=== PATIENT | female | born 1985 | race American Indian/Alaskan Native ===

== ENCOUNTER 2019-02-05 16:14 | Emergency (ER) | payer BC ==
--- NOTE | 2019-02-05 16:21 | Emergency Department Report ---
Blank Doc - Documentation Documentation: This is a 33-year-old female that presents with acute on chronic intermittent headache. Stated has been having headaches for many years. Stated seen PCP last week. This initial assessment/diagnostic orders/clinical plan/treatment(s) is/are subject to change based on patient's health status, clinical progression and re- assessment by fellow clinical providers in the ED. Further treatment and workup at subsequent clinical providers discretion. Patient/guardians urged not to elope from the ED as their condition may be serious if not clinically assessed and managed. Initial orders include: 1- Patient sent to [facility] for further evaluation and treatment
[2019-02-05] MEDS ORDERED: REGLAN IV ONE (17:17)
[2019-02-05] MEDS ORDERED: BENADRYL IV ONE (17:17)
[2019-02-05] MEDS ORDERED: TORADOL IV ONE (17:17)
[2019-02-05] MEDS ORDERED: NACL 0.9% 1000 ML 1,000 ML IV ONE (17:23)
[2019-02-05] MEDS ORDERED: DECADRON IV ONE (17:29)
--- NOTE | 2019-02-05 17:39 | Emergency Department Report ---
ED Headache HPI - General Chief Complaint: Headache Stated Complaint: HEADACHE Time Seen by Provider: 02/05/19 16:19 Source: patient Exam Limitations: no limitations - History of Present Illness Initial Comments: 33-year-old female with no significant past medical history presents to the hospital complaints of left sided headache since this a.m. Headache is constant, described as a pressure in the left front part of her head, and rated 10/10 in intensity. Aggravated by light and sound. Positive blurry vision without nausea, vomiting, fever, neck pain, or history of trauma. Patient states she has had chronic intermittent headaches for the last 1 year. Sometimes it is left frontal and other times is on the right side. She actually saw her primary care doctor last week for a headache and was told to discontinue NSAIDs. He states that headache was actually improving until it worsened today. Her headaches in the past have not been as bad as today. She has never been seen by her neurologist had a CT or MRI of her brain. Allergies/Adverse Reactions: Allergies No Known Allergies Allergy (Verified 02/05/19 16:19) Home Medications: Ambulatory Orders Amoxicillin/K Clav Tab [Augmentin 875 mg] 1 tab PO Q12HR #14 tab 02/05/19 Ibuprofen [Motrin] 800 mg PO Q8HR PRN #30 tablet 02/05/19 Pseudoephedrine ER [Sudafed 12 Hr] 120 mg PO BID PRN #20 tablet.er 02/05/19 traMADol [Ultram 50 MG tab] 50 mg PO Q6HR PRN #20 tablet 02/05/19 ED Review of Systems ROS: Stated complaint: HEADACHE Other details as noted in HPI Comment: All other systems reviewed and negative ED Past Medical Hx - Past Medical History Previous Medical History?: No - Surgical History Past Surgical History?: Yes Hx Breast Surgery: Yes (breast reduction) - Social History Smoking Status: Never Smoker Substance Use Type: Alcohol - Medications Home Medications: Home Medications Medication Instructions Recorded Confirmed Last Taken Type Amoxicillin/K Clav Tab [Augmentin 1 tab PO Q12HR #14 tab 02/05/19 Unknown Rx 875 mg] Ibuprofen [Motrin] 800 mg PO Q8HR PRN #30 tablet 02/05/19 Unknown Rx Pseudoephedrine ER [Sudafed 12 Hr] 120 mg PO BID PRN #20 tablet.er 02/05/19 Unknown Rx traMADol [Ultram 50 MG tab] 50 mg PO Q6HR PRN #20 tablet 02/05/19 Unknown Rx ED Physical Exam - General Limitations: No Limitations - Other Other exam information: General: No limitations, patient is alert in no acute distress Head exam: Atraumatic, normocephalic Eyes exam: Normal appearance, pupils equal reactive to light, extraocular movements intact ENT: Moist mucous membrane, normal oropharynx Neck exam: Normal inspection, full range of motion, no meningismus nontender Respiratory exam: Clear to auscultation bilateral, no wheezes, rales, crackles Cardiovascular: Normal rate and rhythm, normal heart sounds Abdomen: Soft, nondistended, and nontender, with normal bowel sounds, no rebound, or guarding Extremity: Full range of motion normal inspection no deformity Back: Normal Inspection, full range of motion, no tenderness Neurologic: Alert, oriented x3, cranial nerves intact, no motor or sensory deficit, [id number] function intact, lateral visual gaines intact Psychiatric: normal affect, normal mood Skin: Warm, dry, intact ED Course Vital Signs 02/05/19 02/05/19 02/05/19 16:16 17:37 19:26 Temperature 98.4 F 98.5 F Pulse Rate 100 H 81 Respiratory 18 16 14 Rate Blood Pressure 150/93 134/88 [Right] O2 Sat by Pulse 100 100 Oximetry ED Medical Decision Making - Radiology Data Radiology results: report reviewed PROCEDURE: CT HEAD/BRAIN WO CON TECHNIQUE: Computerized tomography of the head was performed without contrast material. CT DOSE LENGTH PRODUCT: 805.4 mGycm HISTORY: left frontal headache. PT REFUSED TO TAKE OUT EARRING, STATING TOO HARD TO COME OUT OR PUT BACK IN COMPARISONS: None . FINDINGS: Skull and scalp: Normal . Paranasal sinuses: Air-fluid level seen in the left sphenoid sinus, correlate for acute sinusitis. Mastoid air cells well aerated. Ventricles and subarachnoid spaces: Normal . Cerebrum: No evidence of hemorrhage, acute infarction or mass . Cerebellum and brainstem: No evidence of hemorrhage, acute infarction or mass . Vasculature: Normal . Other: None . IMPRESSION: No evidence of hemorrhage, acute infarction or mass . Air-fluid level seen in the left sphenoid sinus, correlate for acute sinusitis. - Medical Decision Making unilateral headache improved with migraine cocktail ddx migraine vs sinusitis based on ct head plan to d/c with meds and f/u repeat vitals show impovement in htn - Differential Diagnosis migraine, headache, mass, ICH, sinusitis Critical Care Time: No Critical care attestation.: If time is entered above; I have spent that time in minutes in the direct care of this critically ill patient, excluding procedure time. ED Disposition Clinical Impression: Unilateral headache, Sphenoid sinusitis Disposition: TO HOME OR SELFCARE Is pt being admited?: No Does the pt Need Aspirin: No Condition: Stable Instructions: Sinusitis (ED), Acute Headache (ED) Additional Instructions: Take the medication as prescribed. Follow up with your doctor or the clinic/doctor provided. Return if symptoms worsen as indicated by your discharge instructions Prescriptions: Amoxicillin/K Clav Tab [Augmentin 875 mg] 1 tab PO Q12HR #14 tab Ibuprofen [Motrin] 800 mg PO Q8HR PRN #30 tablet PRN Reason: Pain , Severe (7-10) Pseudoephedrine ER [Sudafed 12 Hr] 120 mg PO BID PRN #20 tablet.er PRN Reason: Nasal Congestion traMADol [Ultram 50 MG tab] 50 mg PO Q6HR PRN #20 tablet PRN Reason: Pain Referrals: FARHANA ESCOBEDO MD [Staff Physician] - 3-5 Days your, primary care doctor [Other] - 3-5 Days MARTHA ZAYAS MD [Staff Physician] - 7-10 days (Ear nose and throat ) Time of Disposition: 19:30
[2019-02-05] MEDS ORDERED: COMPAZINE IV ONE (18:21)
--- NOTE | 2019-02-05 19:17 | Cat Scan Report ---
PROCEDURE: CT HEAD/BRAIN WO CON TECHNIQUE: Computerized tomography of the head was performed without contrast material. CT DOSE LENGTH PRODUCT: 805.4 mGycm HISTORY: left frontal headache. PT REFUSED TO TAKE OUT EARRING, STATING TOO HARD TO COME OUT OR PUT BACK IN COMPARISONS: None . FINDINGS: Skull and scalp: Normal . Paranasal sinuses: Air-fluid level seen in the left sphenoid sinus, correlate for acute sinusitis. Ma stoid air cells well aerated. Ventricles and subarachnoid spaces: Normal . Cerebrum: No evidence of hemorrhage, acute infarction or mass . Cerebellum and brainstem: No evidence of hemorrhage, acute infarction or mass . Vasculature: Normal . Other: None . IMPRESSION: No evidence of hemorrhage, acute infarction or mass . Air-fluid level seen in the left sphenoid sinus, correlate for acute sinusitis. This document is electronically signed by Elver Murguia MD., February 05 2019 07:15:08 PM ET
[2019-02-05 19:31] VITALS: BP 134/88
== END 2019-02-05 20:02 | disposition home or self-care (01) ==
LOC: ED 16:14
DX: J32.3 Chronic sphenoidal sinusitis (principal)
CPT/HCPCS: 70450; 96374; 96375; 99283; J0780; J1100; J1200; J1885; J7030; 96361